=== PATIENT | male | born 1995 | race Caucasian/White ===

== ENCOUNTER 2020-09-21 16:19 | Emergency (ER) | payer SELFPAY ==
[2020-09-21 16:31] VITALS: BP 134/86; PULSE 101; RESP 18; TEMP 36.2; O2SAT 99; BMI 19.3
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
[2020-09-21] MEDS: magnesium citrate Btl 296 mL PO (17:44)
[2020-09-21 17:47] VITALS: RESP 18
--- NOTE | 2020-09-22 09:29 | DCPLANNER ---
commercial property manager had message to speak with patient about getting established with a primary care physician. commercial property manager called phone number [phone], unable to speak with patient at this time. commercial property manager was also unable to leave a voicemail for patient due to no voicemail box being set up.
== END 2020-09-21 17:47 | disposition home or self-care (01) ==
PROVIDERS: Emergency Provider Family Medicine
DX: K59.00 Constipation, unspecified (principal)
CPT/HCPCS: 99282

== ENCOUNTER 2020-10-01 18:05 | Emergency (ER) | payer SELFPAY ==
--- NOTE | 2020-10-01 18:18 | XRR_ITS ---
PROCEDURE INFORMATION: Exam: XR Abdomen Exam date and time: 10/01/2020 7:20 PM Age: 25 years old Clinical indication: Constipation; Additional info: Constipation, bloating TECHNIQUE: Imaging protocol: XR of the abdomen. Views: 2 Views. Upright and supine views. COMPARISON: No relevant prior studies available. FINDINGS: Lungs: No consolidative pulmonary infiltrates are noted. Gastrointestinal tract: Nonobstructive intestinal gas pattern demonstrated. Intraperitoneal space: No pneumoperitoneum demonstrated. Bones/joints: Scoliosis of the spine. No fracture or other acute osseous abnormality. Soft tissues: The soft tissues appear unremarkable. XR/XR acute abdomen series [id number] IMPRESSION: No acute abnormality demonstrated.
[2020-10-01 18:39] VITALS: BP 143/79; PULSE 109; RESP 16; TEMP 36.7; O2SAT 95; BMI 19.3
--- NOTE | 2020-10-01 19:12 | ED_ITS ---
HPI - General Adult General: Chief complaint: General Medical Stated complaint: constipation Time Seen by Provider: 10/01/20 19:12 Source: patient Mode of arrival: ambulatory Limitations: no limitations History of Present Illness: HPI narrative: 25-year-old male patient comes in today with abdominal discomfort and feeling of bloating. Patient reports some issues with constipation. Patient has taken a bottle of mag citrate that was given 1 week ago and reports minimal relief. Patient appears well. Patient appears in no pain. Patient is very underweight for his stature. When questioned about his eating habits patient only ate once today. Patient did report to eating 2 sandwiches yesterday. Patient denies any vomiting, blood in vomit or stool, fever or chills. Review of Systems General: Reports: 10 or more systems reviewed and unremarkable except in HPI and below GI: Reports: constipation PFSH ED PFSH: Social History (Updated 10/01/20 @ 18:44 by Mk Ward RN) Smoking and tobacco status: current every day smoker cigarettes Packs smoked per day: 0.5 Alcohol intake: current Alcohol intake frequency: holidays/special occasions only Substance/Drug Use: current Substance/Drug use frequency: few times a month Substance/Drug use type: Marijuana Physical Exam Const: COMMON NORMALS: no acute distress and patient oriented x3 GENERAL APPEARANCE: cooperative HENMT: COMMON NORMALS: normocephalic and Normal external nose present HEAD & SCALP: normal to inspection and normocephalic NOSE: Normal external nose present MOUTH: Normal oral and palatal mucosa present THROAT: posterior oropharynx normal Eye: GENERAL EYE: appearance normal, both eyes and all related structures Neck/C-Spine: COMMON NORMALS: full ROM Lymph: LYMPHATIC: no lymphadenopathy noted Chest: COMMONS NORMALS: normal inspection of the chest Resp: COMMON NORMALS: normal respiratory effort EFFORT & INSPECTION: Yes able to speak in complete sentences Cardio: COMMON NORMALS: regular rate and regular rhythm RATE: regular rate RHYTHM: regular rhythm GI: COMMON NORMALS: Soft to palpation and non-tender INSPECTION: Yes normal to inspection AUSCULTATION: Yes normoactive bowel sounds PALPATION: Yes Soft to palpation : COMMON NORMALS: Yes no CVA tenderness BLADDER/KIDNEY EXAM: Yes no CVA tenderness Back/Pelvis: COMMON NORMALS: no CVA tenderness and thoracic and lumbar spine normal to inspection Extremity: COMMON NORMALS: normal to inspection Neuro: COMMON NORMALS: patient oriented x3 and moves all extremities Psych: COMMON NORMALS: mental status grossly normal and cooperative Skin: COMMON NORMALS: no rashes or lesions noted GENERAL SKIN EXAM: no rashes or lesions noted Course Vital Signs: Vital signs: Vital Signs Temperature 98.1 F 10/01/20 18:39 Pulse Rate 109 H 10/01/20 18:39 Respiratory Rate 16 10/01/20 18:39 Blood Pressure 143/79 10/01/20 18:39 Pulse Oximetry 95 10/01/20 18:39 MDM - General Adult MDM Narrative: Medical decision making narrative: Patient comes in today with complaints of constipation. Patient done 1 bottle of mag citrate last week with a good bowel movement but patient continues to have some constipation since then. Patient appears well. Patient appears in no acute distress. Abdomen soft and nontender. Bowel sounds are present. Skin is warm and dry. Vital signs are normal. Differential diagnosis includes constipation, bowel obstruction, malingering. Flat and upright abdomen noted no bowel obstruction or free air. Reviewed exam with patient with recommendations for treatment and follow-up. Patient reported understanding agreed to plan. A case management referral was requested for primary care. Patient reported understanding and agreed to plan. Discharge Plan Discharge Patient Disposition: Home Clinical Impression: Constipation Qualifiers: Constipation type: unspecified constipation type Qualified Code(s): K59.00 - Constipation, unspecified Condition: Stable Prescriptions: New Miralax 17 gram/dose powder 17 g PO BID PRN (Reason: constipation) Qty: 238 RF: 0 Discharge Orders: Discharge ED (Routine); Ordered 10/01/20 Ordered By: Isidro Torres Discharge Diet: Usual diet Discharge Activity: Increase activity as tolerated Patient Instructions: Constipation (ED), Opioid Safety Activity Restrictions/Additional Instructions: Eat a diet with plenty of fruits and vegetables. Drink plenty of water with medication. Use MiraLAX 17 g/1 capful, twice a day as needed for constipation. Follow-up with primary care for further treatment. Case management will call you to assist with primary care follow-up. Return to the emergency department for high fever, blood in vomit or stool, or new concerns. Coding Level of Care Code ED Senior Strategy Analyst for [facility] Exam Comprehensive
--- NOTE | 2020-10-03 15:30 | DCPLANNER ---
delivery manager had message to speak with patient about getting established with a primary care physician. delivery manager spoke with patient, offered to get him established with a primary care physician. Patient stated that he did not want to get established at this time.
== END 2020-10-01 20:17 | disposition home or self-care (01) ==
PROVIDERS: Emergency Provider Nurse Practitioner Family
DX: K59.00 Constipation, unspecified (principal); F17.210 Nicotine dependence, cigarettes, uncomplicated
CPT/HCPCS: 74022; 99282

== ENCOUNTER 2021-08-24 14:45 | Emergency (ER) | payer SELFPAY ==
[2021-08-24 15:01] VITALS: BP 128/64; PULSE 91; RESP 15; TEMP 36.7; O2SAT 100; BMI 19.3
--- NOTE | 2021-08-24 15:11 | XR_ITS ---
WS: [id number] XR hand RT min 3V* [id number] REASON FOR EXAM: trauma FINDINGS: Fracture of the distal right fifth metacarpal carpal overriding of the fracture fragments with health information managers ior angulation. No other significant findings. XR/XR hand RT min 3V* [id number] IMPRESSION: Fifth metacarpal fracture as above.
--- NOTE | 2021-08-24 15:11 | XR_ITS ---
WS: [id number] XR wrist RT min 3V* [id number] REASON FOR EXAM: trauma FINDINGS: Joint spaces of the right wrist are intact. No fracture of the radius, ulna, or carpal bones. No soft tissue abnormality. XR/XR wrist RT min 3V* [id number] IMPRESSION: No acute abnormality.
--- NOTE | 2021-08-24 15:11 | W.ED.EXTPRO ---
HPI - Extremity Problem General: Chief complaint: Extremity Injury, Upper Stated complaint: swollen right hand Time Seen by Provider: 08/24/21 15:09 Source: patient History of Present Illness: 26-year-old male who presents emergency room he states he slipped and fell and landed on a closed fist against the ground on his right hand. He is complaining of significant swelling happened his prior he has an abrasion across the fourth and fifth knuckles. MD Complaint: extremity pain Onset (ago): hour(s) (1) Pain Consistency: constant Location: right Quality: sharp Associated symptoms: Deny chest pain or fever(s) Review of Systems Const: Denies: fever(s), chills, body aches, change in appetite, fatigue or malaise Card: Denies: chest pain, edema, dyspnea on exertion or orthopnea Resp: Denies: dyspnea, productive cough or non-productive cough PFS ED PFSH: Medical History (Updated 08/24/21 @ 16:17 by Mickey Rod DO) Closed fracture of fifth metacarpal bone Constipation Surgical History (Updated 08/24/21 @ 16:17 by Mickey Rod DO) No significant past surgical history Social History Smoking and tobacco status: current every day smoker cigarettes Packs smoked per day: 0.5 Alcohol intake: current Alcohol intake frequency: holidays/special occasions only Physical Exam Const: COMMON NORMALS: no acute distress GENERAL APPEARANCE: cooperative and comfortable ORIENTATION/CONSCIOUSNESS: Yes awake, Yes oriented to person, Yes oriented to place and Yes oriented to time HENMT: COMMON NORMALS: normocephalic, atraumatic and hearing grossly normal bilaterally HEAD & SCALP: normocephalic and atraumatic Neck/C-Spine: COMMON NORMALS: no JVD Resp: COMMON NORMALS: normal respiratory effort, No retractions, No use of accessory muscles and clear to auscultation bilaterally AUSCULTATION: clear to auscultation bilaterally Cardio: COMMON NORMALS: no JVD, regular rate, regular rhythm and No murmurs present (Cardio) RATE: regular rate RHYTHM: regular rhythm Extremity: OTHER: Abrasion over the fourth and fifth knuckles on the right hand with obvious distal metacarpal deformity. X-ray confirms fracture of the fifth metacarpal mildly displaced Neuro: SENSORIUM/ORIENTATION: Yes oriented to person, Yes oriented to place and Yes oriented to time Skin: COMMON NORMALS: no rashes or lesions noted GENERAL SKIN EXAM: no rashes or lesions noted Course Vital Signs: Vital signs: Vital Signs Temperature 98.1 F 08/24/21 15:01 Pulse Rate 91 08/24/21 15:01 Respiratory Rate 15 08/24/21 15:01 Blood Pressure 128/64 08/24/21 15:01 Pulse Oximetry 100 08/24/21 15:01 MDM - Extremity (Nontraumatic) Medical Decision Making Distal fifth metacarpal fracture ulnar gutter splint applied refer to Ortho no use of the right hand. Lab Data Radiology Impressions Hand X-Ray 08/24/21 15:11 IMPRESSION: Fifth metacarpal fracture as above. Wrist X-Ray 08/24/21 15:11 IMPRESSION: No acute abnormality. Discharge Plan Discharge Patient Disposition: Home Clinical Impression: Closed fracture of fifth metacarpal bone Qualifiers: Encounter type: initial encounter Metacarpal location: unspecified portion of metacarpal Fracture alignment: displaced Laterality: right Qualified Code(s): S62.306A - Unspecified fracture of fifth metacarpal bone, right hand, initial encounter for closed fracture Condition: Stable Prescriptions: No Action Miralax 17 gram/dose powder 17 g PO BID PRN (Reason: constipation) Qty: 238 0RF Discharge Orders: Discharge ED (Routine); Ordered 08/24/21 Ordered By: Mickey Rod Discharge Diet: Usual diet Discharge Activity: Limit activity as instructed Activity Restrictions/Additional Instructions: No use of the right hand. sql manager will make arrangements for you to follow-up with orthopedics. Coding Level of Care Code ED [employer] Water Pump Operator for [facility]
--- NOTE | 2021-08-24 15:19 | PC.NURSE ---
pt states he fell outside of his house on ice. right hand is swollen. pt able to move fingers. cap refill WNL.
--- NOTE | 2021-08-25 15:05 | DCPLANNER ---
Addendum entered by Minerva Katz 09/01/21 06:56: Patient had a follow up appointment scheduled for 08.29.21 with Federico FLETCHER at ortho - patient did attend appointment. Original Note: marketing and public relations manager had message to schedule a follow up appointment for patient with ortho. marketing and public relations manager emailed patients information to Randa at the ortho clinic. Patients information will be printed and reviewed. Clinic will call patient with appointment information.
== END 2021-08-24 16:12 | disposition home or self-care (01) ==
PROVIDERS: Emergency Provider Family Medicine
DX: S62.306A Unspecified fracture of fifth metacarpal bone, right hand, initial encounter for closed fracture (principal); F17.210 Nicotine dependence, cigarettes, uncomplicated; W01.0XXA Fall on same level from slipping, tripping and stumbling without subsequent striking against object, initial encounter
CPT/HCPCS: 29125; 73110; 73130; 99283

== ENCOUNTER 2021-08-29 16:39 | Outpatient (CLI) | payer SELFPAY | END 2021-08-29 16:40 | disposition home or self-care (01) | LOC: SPT 16:40 | PROVIDERS: Visit Provider Physician Assistant | DX: Z46.89 Encounter for fitting and adjustment of other specified devices (principal); S62.337D Displaced fracture of neck of fifth metacarpal bone, left hand, subsequent encounter for fracture with routine healing; X58.XXXD Exposure to other specified factors, subsequent encounter | CPT/HCPCS: 97760; L3984 ==

== ENCOUNTER → 2021-09-12 15:18 | Outpatient (BNVA) | payer SELFPAY | PROVIDERS: Visit Provider Physician Assistant | DX: S62.337D Displaced fracture of neck of fifth metacarpal bone, left hand, subsequent encounter for fracture with routine healing (principal); W00.0XXD Fall on same level due to ice and snow, subsequent encounter | CPT/HCPCS: 73130 ==

== ENCOUNTER → 2021-09-26 13:09 | Outpatient (BNVA) | payer SELFPAY | PROVIDERS: Visit Provider Physician Assistant | DX: S62.336A Displaced fracture of neck of fifth metacarpal bone, right hand, initial encounter for closed fracture (principal); S62.337A Displaced fracture of neck of fifth metacarpal bone, left hand, initial encounter for closed fracture; X58.XXXA Exposure to other specified factors, initial encounter | CPT/HCPCS: 73120 ==

== ENCOUNTER 2022-08-11 16:05 | Emergency (ER) | payer SELFPAY ==
[2022-08-11 16:13] VITALS: BP 133/97; PULSE 91; RESP 16; TEMP 36.7; O2SAT 99
== END 2022-08-11 19:52 | disposition left against medical advice (07) ==
PROVIDERS: Emergency Provider Family Medicine
DX: Z53.21 Procedure and treatment not carried out due to patient leaving prior to being seen by health care provider (principal)
CPT/HCPCS: 99283

== ENCOUNTER 2022-08-12 16:08 | Emergency (ER) | payer SELFPAY ==
[2022-08-12 16:15] VITALS: BP 113/78; PULSE 101; RESP 16; TEMP 36.7; O2SAT 99
[2022-08-12 17:16] LABS: Add Urine Microscopic? NO; Charge for UA Resulting for Rev
--- NOTE | 2022-08-12 17:27 | W.ED.MALEGU ---
HPI - Male Genitourinary General: Chief complaint: Urogenital-Male Stated complaint: urogenital Time Seen by Provider: 08/12/22 17:05 History of Present Illness: Patient is a 27-year-old male comes to the ED with dysuria. He has been having symptoms of pain when he urinates for approximately week and a half. Over the past couple days he started developing some left-sided lower back pain as well. Denies any fevers, chills, nausea/vomiting, penile lesions or penile discharge. Associated symptoms: Reports dysuria; Deny hematuria, nausea or vomiting Review of Systems Const: Denies: fever(s), chills or fatigue Eyes: Denies: change in vision or eye discomfort ENMT: Denies: throat pain, odynophagia, nasal discharge or nasal congestion Card: Denies: chest pain, palpitations, edema, swelling of feet/ankles, dyspnea on exertion or orthopnea Resp: Denies: dyspnea, productive cough or non-productive cough GI: Denies: abdominal pain, nausea, vomiting, diarrhea, constipation or hematochezia : Reports: dysuria; Denies: flank pain, difficulty urinating, hematuria, genital lesions or penile discharge Musc: Reports: back pain (Left lower back pain); Denies: neck pain or extremity swelling Skin/Breast: Denies: rash or new lesions Neuro: Denies: headache(s), numbness in extremities or weakness in extremities PFSH ED PFSH: Medical History Closed fracture of fifth metacarpal bone Constipation Surgical History No significant past surgical history Social History Smoking and tobacco status: never smoked Alcohol intake: current Alcohol intake frequency: holidays/special occasions only Physical Exam Const: COMMON NORMALS: no acute distress, patient oriented x3 and alert GENERAL APPEARANCE: cooperative HENMT: COMMON NORMALS: normocephalic HEAD & SCALP: normocephalic MOUTH: Normal oral and palatal mucosa present THROAT: posterior oropharynx normal and uvula midline Neck/C-Spine: COMMON NORMALS: supple GENERAL: Yes normal visual inspection Resp: COMMON NORMALS: normal respiratory effort, No retractions, No use of accessory muscles and clear to auscultation bilaterally AUSCULTATION: clear to auscultation bilaterally Cardio: COMMON NORMALS: regular rate, regular rhythm, S1 normal heart sound present, S2 normal heart sound present, No gallops present (Cardio), No clicks present (Cardio), No murmurs present (Cardio) and Peripheral pulses 2+ throughout RATE: regular rate RHYTHM: regular rhythm HEART SOUNDS: S1 normal heart sound present and S2 normal heart sound present PERIPHERAL PULSES: Peripheral pulses 2+ throughout GI: COMMON NORMALS: Normal to inspection, nondistended, normoactive bowel sounds present, Soft to palpation, non-tender and no masses PALPATION: Yes Soft to palpation : BLADDER/KIDNEY EXAM: Yes CVA tenderness Back/Pelvis: GENERAL BACK: Yes CVA tenderness CVA tenderness: left Neuro: COMMON NORMALS: patient oriented x3 SENSORIUM/ORIENTATION: Yes alert GAIT: Yes Normal gait present Skin: GENERAL SKIN EXAM: dry skin Course Vital Signs: Vital signs: Vital Signs Temperature 98.1 F 08/12/22 16:15 Pulse Rate 79 08/12/22 18:54 Respiratory Rate 14 08/12/22 18:54 Blood Pressure 114/68 08/12/22 18:54 Pulse Oximetry 100 08/12/22 18:54 Oxygen Delivery Me thod 08/12/22 16:15 MDM - Male Medical Decision Making Patient is a 27-year-old male comes to the ED with dysuria. He has been having symptoms of pain when he urinates for approximately week and a half. Over the past couple days he started developing some left-sided lower back pain as well. Denies any fevers, chills, nausea/vomiting, penile lesions or penile discharge. Vitals are stable. Patient has some left CVA tenderness but rest of exam is benign. He appears nontoxic in no acute distress. CBC is unremarkable. UA does not show any signs of UTI. Chlamydia/gonorrhea and trichomonas panel pending. Given patient's UTI symptoms I was going to treat him like UTI. He was given a dose of Rocephin and azithromycin here in the ED to cover for any possible STDs. He was discharged home with a prescription for Bactrim and told to follow-up with his PCP in the next week for reevaluation. Return to ED precautions given. Patient understood and agreed with plan. Lab Data I reviewed the patient's lab results. 08/12/22 17:21 Laboratory Results WBC 9.1 10^3/uL (4.0-10.0) 08/12/22 17:21 RBC 4.77 10^6/uL (4.1-5.3) 08/12/22 17:21 Hgb 14.4 g/dL (11.7-16.6) 08/12/22 17:21 Hct 43.5 % (42.0-52.0) 08/12/22 17:21 MCV 91.2 fl (80-94) 08/12/22 17:21 MCH 30.2 pg (28.0-34.0) 08/12/22 17: MCHC 33.1 g/dL (30.0-36.0) 08/12/22 17:21 RDW 12.5 % (12.1-15.1) 08/12/22 17:21 Plt Count 237 10^3/cmm (130-400) 08/12/22 17:21 MPV 10.2 fL (7.4-10.4) 08/12/22 17:21 Neut % (Auto) 64.4 % 08/12/22 17:21 Lymph % (Auto) 24.0 % 08/12/22 17:21 [place] % (Auto) 9.8 % 08/12/22 17:21 Eos % (Auto) 1.2 % 08/12/22 17:21 Baso % (Auto) 0.4 % 08/12/22 17: Neut # (Auto) 5.84 10^3/uL (1.8-7.7) 08/12/22 17:21 Lymph # (Auto) 2.2 10^3/uL (0.8-4.8) 08/12/22 17:21 [place] # (Auto) 0.9 10^3/uL (0.2-0.9) 08/12/22 17:21 Eos # (Auto) 0.1 10^3/uL (0.0-0.8) 08/12/22 17:21 Baso # (Auto) 0.0 10^3/uL (0.0-0.1) 08/12/22 17:21 Nucleated RBC % (auto) 0 % 08/12/22 17:21 Nucleated RBCs # 0.0 /100WBC 08/12/22 17:21 Urine Color Dark yellow (Yellow) 08/12/22 17:01 Urine Appearance Clear (CLEAR) 08/12/22 17:01 Urine pH 6 (5-7) 08/12/22 17:01 Ur Specific [place] 1.020 (1.005-1.030) 08/12/22 17:01 Urine Protein Neg (Negative) 08/12/22 17:01 Urine Glucose (UA) Norm (Normal) 08/12/22 17:01 Urine Ketones 1+ (Negative) H 08/12/22 17:01 Urine Blood Neg (Negative) 08/12/22 17:01 Urine Nitrate Negative (Negative) 08/12/22 17:01 Urine Bilirubin Neg (Negative) 08/12/22 17:01 Urine Urobilinogen Norm mg/dL (Negative) 08/12/22 17:01 Ur Leukocyte Esterase Negative (Negative) 08/12/22 17:01 Discharge Plan Discharge Patient Disposition: Home Clinical Impression: Urinary tract infection symptoms Condition: Stable Prescriptions: New Bactrim DS 800-160 mg tablet 1 tab PO BID 5 Days Qty: 10 0RF No Action (DME) Ulnar Gutter Splint See Rx Instructions .Route .MEDSUPPLY Qty: 1 0RF Rx Instructions: As directed tramadol 50 mg tablet 50 mg PO Q4H PRN (Reason: pain) Qty: 40 0RF Miralax 17 gram/dose powder 17 g PO BID PRN (Reason: constipation) Qty: 238 0RF Discharge Orders: Discharge ED (Routine); Ordered 08/12/22 Ordered By: Greyson Downing Discharge Diet: Regular Discharge Activity: Increase activity as tolerated Activity Restrictions/Additional Instructions: Follow-up with medical provider as directed in the next 5 to 7 days for reevaluation. Take medications as prescribed. Return to the ER or your medical provider if condition worsens. Please read and understand discharge instructions. Thank you for choosing [facility] for your healthcare needs today. Please realize this is an emergency room and that we are providing you with a medical screening exam and this may not be complete and all inclusive of all the testing and or work up that you may need to determine your ailment or severity of your illness. It is very important that you follow up as instructed or that you return to the Emergency Department should you have concerns or if your condition changes or worsens in any way. Coding Level of Care Code ED Director Selection And Administration for [facility] Fwd Exam Comprehensive
[2022-08-12 17:30] LABS: Bilirubin Urine Neg (Negative); Blood Urine Neg (Negative); Glucose Urine UA Norm (Normal); Ketones Urine 1+ (Negative); Leukocyte Esterase Urine Negative (Negative); Nitrate Urine Negative (Negative); Protein Urine Neg (Negative); Urine Appearance Clear (CLEAR); Urine Color Dark Yellow (Yellow); Urobilinogen Urine Norm (Negative); pH Urine 6 (5-7)
[2022-08-12 17:33] LABS: Basophils % 0.4 %; Eosinophils # 0.1 10^3/uL (0.0-0.8); Eosinophils % 1.2 %; Hematocrit 43.5 % (42.0-52.0); Hemoglobin 14.4 g/dL (11.7-16.6); Lymphocytes # 2.2 10^3/uL (0.8-4.8); Mean Corpuscular HGB Conc 33.1 g/dL (30.0-36.0); Mean Corpuscular Hemoglobin 30.2 pg (28.0-34.0); Mean Corpuscular Volume 91.2 fl (80-94); Mean Platelet Volume 10.2 fL (7.4-10.4); Monocytes # 0.9 10^3/uL (0.2-0.9); Monocytes % 9.8 %; Neutrophils # 5.84 10^3/uL (1.8-7.7); Neutrophils % 64.4 %; Nucleated Red Blood Cells % 0 %; Platelet Count 237 10^3/cmm (130-400); Red Blood Count 4.77 10^6/uL (4.1-5.3); Red Cell Distribution Width 12.5 % (12.1-15.1); White Blood Count 9.1 10^3/uL (4.0-10.0)
[2022-08-12] MEDS: azithromycin 250 mg Tablet 1000 MG PO (18:47)
[2022-08-12] MEDS: cefTRIAXone 250 MG in water for injection-sterile 0.9 ML IM (18:48)
[2022-08-12 18:54] VITALS: BP 114/68; PULSE 79; RESP 14; O2SAT 100
--- NOTE | 2022-08-13 16:20 | PC.NURSE ---
pt notified of positive micro results and asked pharmacy of choice. Doxyxyxline 100mg called into [facility] pharmacy per patient
--- NOTE | 2022-08-14 18:14 | PC.NURSE ---
called pt to inform him of test results from previous visit and to call in medication. pt states he was notified yesterday of results and that medication was called into pharmacy. pt states he hasn't had a ride yet to [facility]. educated pt to abstain from sexual activity and health department will call to follow up, pt verbalized understanding
== END 2022-08-12 18:55 | disposition home or self-care (01) ==
PROVIDERS: Physician Assistant; Emergency Provider Physician Assistant
DX: R30.0 Dysuria (principal)
CPT/HCPCS: 81003; 85025; 87491; 87591; 96372; 99284; J0696; Q0144